=== PATIENT | male | born 1940 | race Caucasian/White ===

== ENCOUNTER 2022-07-02 10:18 | Emergency (ER) | payer MEDICARE, OTHER ==
[2022-07-02 11:34] VITALS: TEMP 97.3; BMI 25.4
[2022-07-02] MEDS ORDERED: LIDOCAINE 5% TOPICAL PATCH TP ONE (14:21)
[2022-07-02] MEDS ORDERED: MECLIZINE HCL 25 MG TABLET (FP) PO ONE (14:52)
[2022-07-02 15:29] LABS: BASO % 0.8 % (0-2.0); EOS % 1.8 % (0-4.5); HEMATOCRIT 40.8 % (35.4-49); HEMOGLOBIN 14.1 GM/dL (11.7-16.9); LYMPH % 30.6 % (8-40); MCH 32.2 pg (25.7-33.7); MCHC 34.5 g/dl (32.0-35.9); MEAN CELL VOLUME 93.4 fl (80-96); MEAN PLT VOLUME 9.5 fl (7.5-11.1); NEUT % 56.8 % (42.8-82.8); PLATELET COUNT 220 10^3/uL (134-434); RBC 4.37 M/mm3 (4.00-5.60); WHITE BLOOD COUNT 5.8 K/mm3 (4.0-10.0)
[2022-07-02] MEDS ORDERED: LIDOCAINE 5% TOPICAL PATCH ONE (15:38)
[2022-07-02 15:56] LABS: ALBUMIN 3.7 g/dl (3.4-5.0); BLOOD UREA NITROGEN 24.5 mg/dL (7-18); CALCIUM 9.1 mg/dL (8.5-10.1)
[2022-07-02 15:59] LABS: CREATININE 1.1 mg/dL (0.55-1.3)
[2022-07-02 16:01] LABS: BILIRUBIN,TOTAL 0.3 mg/dL (0.2-1); TOT PROT 7.4 g/dl (6.4-8.2)
[2022-07-02 16:27] LABS: URINE APPEARANCE CLEAR; URINE BILIRUBIN NEGATIVE (NEGATIVE); URINE COLOR YELLOW; URINE GLUCOSE (UA) 1+ (NEGATIVE); URINE KETONE NEGATIVE (NEGATIVE); URINE LEUK ESTERASE NEGATIVE (NEGATIVE); URINE NITRITE NEGATIVE (NEGATIVE); URINE PROTEIN NEGATIVE (NEGATIVE); URINE UROBILINOGEN 0.2 mg/dL (0.2-1.0)
[2022-07-02 19:31] VITALS: BP 146/85; PULSE 58; RESP 18
[2022-07-02] MEDS ORDERED: LIDOCAINE PATCH REMOVAL MC ONE (22:00)
== END 2022-07-02 19:45 | disposition home or self-care (01) ==
LOC: JER 10:18
DX: R42 Dizziness and giddiness (principal)
CPT/HCPCS: 0241U-QW; 36415; 70450-TC; 70496-TC; 70498-TC; 71046-TC-FY; 80053; 81003; 82746; 83735; 84484; 85025; 87086; 93005; 93010; 99285-25

== ENCOUNTER 2023-01-16 15:31 | Emergency (ER) | payer OTHER ==
[2023-01-16 15:43] VITALS: TEMP 98.3; BMI 25.7
[2023-01-16 18:38] LABS: BASO % 0.6 % (0-2.0); EOS % 1.6 % (0-4.5); HEMATOCRIT 41.6 % (35.4-49); HEMOGLOBIN 14.2 GM/dL (11.7-16.9); LYMPH % 20.9 % (8-40); MCH 31.5 pg (25.7-33.7); MCHC 34.2 g/dl (32.0-35.9); MEAN CELL VOLUME 92.2 fl (80-96); MEAN PLT VOLUME 9.6 fl (7.5-11.1); MONO % 15.7 % (3.8-10.2); NEUT % 61.2 % (42.8-82.8); PLATELET COUNT 186 10^3/uL (134-434); RBC 4.51 M/mm3 (4.00-5.60); RDW 14.7 % (11.9-15.9); WHITE BLOOD COUNT 5.2 K/mm3 (4.0-10.0)
[2023-01-16 19:01] LABS: POTASSIUM 3.9 mmol/L (3.5-5.1)
[2023-01-16 19:03] LABS: ALBUMIN 3.6 g/dl (3.4-5.0); CALCIUM 8.5 mg/dL (8.5-10.1)
[2023-01-16 19:04] LABS: BLOOD UREA NITROGEN 20.2 mg/dL (7-18)
[2023-01-16 19:06] LABS: CREATININE 1.2 mg/dL (0.55-1.3)
[2023-01-16 19:07] LABS: PHOSPHOROUS 2.8 mg/dL (2.5-4.9)
[2023-01-16 19:08] LABS: BILIRUBIN,TOTAL 0.3 mg/dL (0.2-1); TOT PROT 7.5 g/dl (6.4-8.2)
[2023-01-16] MEDS ORDERED: ACETAMINOPHEN 1000 MG/100 ML BAG IVPB ONE (21:44)
[2023-01-16] MEDS ORDERED: ASPIRIN 81 MG CHEWABLE TABLETS PO ONE (21:45)
[2023-01-16] MEDS ORDERED: ASPIRIN 81 MG CHEWABLE TABLETS ONE (21:47)
[2023-01-16] MEDS ORDERED: ACETAMINOPHEN INJECTION 100 ML IVPB ONE (21:47)
[2023-01-16 21:59] LABS: EPI CELLS 15 /uL (0-25.1); HYALINE CASTS 5 /uL (0-3.1); PH,URINE 5.5 (5.0-8.0); URINE APPEARANCE CLEAR; URINE BACTERIA 1 /uL (0-1359); URINE BILIRUBIN NEGATIVE (NEGATIVE); URINE COLOR YELLOW; URINE GLUCOSE (UA) NEGATIVE (NEGATIVE); URINE KETONE NEGATIVE (NEGATIVE); URINE LEUK ESTERASE NEGATIVE (NEGATIVE); URINE NITRITE NEGATIVE (NEGATIVE); URINE PROTEIN 1+ (NEGATIVE); URINE RBC 40 /uL (0-23.9); URINE UROBILINOGEN 0.2 mg/dL (0.2-1.0); URINE WBC 17 /uL (0-25.8)
[2023-01-17 02:56] VITALS: BP 132/68; PULSE 83; RESP 18
== END 2023-01-17 02:57 | disposition home or self-care (01) ==
LOC: JER 15:31
PROC: 3E033NZ Introduction of Analgesics, Hypnotics, Sedatives into Peripheral Vein, Percutaneous Approach (ICD-10-PCS; principal; 2023-01-16)
DX: R19.7 Diarrhea, unspecified (principal); R11.10 Vomiting, unspecified; R63.0 Anorexia; R10.9 Unspecified abdominal pain; Z20.822 Contact with and (suspected) exposure to COVID-19
CPT/HCPCS: 0241U-QW; 36415; 74177-TC; 76705-TC; 80053; 81003; 82962; 83605; 83690; 83735; 84100; 84484; 85025; 87086; 93005; 93010; 99285-25; Q9967